=== PATIENT | female | born 1965 | race Caucasian/White ===

== ENCOUNTER 2018-04-20 09:14 | Emergency (ER) | payer MEDICAID ==
[2018-04-20] MEDS ORDERED: Fluorescein Sodium 1 mg Ophth Strip ONE (09:47)
--- NOTE | 2018-04-20 09:57 | ED Physician Chart ---
ED Chief Complaint/HPI - Patient Information Date Seen:: 04/20/18 Time Seen:: 09:40 Chief Complaint:: pain right eye History of Present Illness:: Patient developed pain, blurred vision and watery discharge from the right eye yesterday. No trauma. Patient developed rhinorrhea after the onset of the right eye symptoms. Patient had right ear pain 2 days ago. Vitals:: Vital Signs - 8 hr 04/20/18 09:21 Temp 97.9 F HR 88 RR 18 BP 130/79 O2 Sat % 97 Historian:: Patient Review:: Nurse's Note Reviewed ED Review of Systems - Review of Systems General/Constitutional: No fever, No chills, No weight loss, No weakness, No diaphoresis, No edema, No loss of appetite Skin: No skin lesions, No rash, No bruising Head: No headache, No light-headedness Eyes: Acuity change, Pain, No diplopia ENT: No earache, No nasal drainage, No sore throat, No tinnitus Neck: No neck pain, No swelling, No thyromegaly, No stiffness, No mass noted Cardio Vascular: No chest pain, No palpitations, No PND, No orthopnea, No edema Pulmonary: No SOB, No cough, No sputum, No wheezing GI: No nausea, No vomiting, No diarrhea, No pain, No melena, No hematochezia, No constipation, No hematemesis G/U: No dysuria, No frequency, No hematuria Musculoskeletal: No bone or joint pain, No back pain, No muscle pain Endocrine: No polyuria, No polydipsia Psychiatric: No prior psych history, No depression, No anxiety, No suicidal ideation Hematopoietic: No bruising, No lymphadenopathy Allergic/Immuno: No urticaria, No angioedema Neurological: No syncope, No focal symptoms, No weakness, No paresthesia, No headache, No seizure, No dizziness, No confusion, No vertigo ED Past Medical History - Past Medical History Past Medical History: No significant medical hx Family History: Other (mother had cardiac arrhythmia and hypertension; father of complications of pneumonia) Social History: Non Smoker, No Alcohol Surgical History: other (cataract surgery left eye) Medication: None Family Medical History - Family Member Father Age: 87 Ethnicity: Living Status: Hx Family Hypertension: Yes Other Medical History: from complications of PNA. Mother Ethnicity: Living Status: Still Living Hx Family Hypertension: Yes Other Medical History: Arrhythmia. ED Physical Exam - Physical Examination General/Constitutional: Awake, Well-developed, well-nourished, Alert, No distress Head: Atraumatic Eyes: Lids, conjuctiva normal, PERRL Other Eyes comments:: Right eye: Upper lid everted and lower lid retracted and no foreign body seen; fluorescein negative; fluorescein irrigated out with normal saline ENMT: External ears, nose nl, TM canals nl, Nasal exam nl, Lips, teeth, gums nl , Oropharynx nl, Tonsils nl Neck: No nuchal rigidity Respiratory: Nl effort/Exclusion, Clear to Auscultation, No Wheeze/Rhonchi/Rales Cardio Vascular: RRR, No murmur, gallop, rubs, NL S1 S2 GI: No tenderness/rebounding/guarding, No organomegaly : No CVA tenderness Extremities: No edema Neuro/Psych: No focal deficits ED Septic Shock - . Is Septic Shock (SBP<90, OR Lactate>4 mmol\L) present?: No - <6hrs of presentation: Vital Signs: Vital Signs - 8 hr 04/20/ 09:21 Temp 97.9 F HR 88 RR 18 BP 130/79 O2 Sat % 97 ED Reassessment (Disposition) - Reassessment Reassessment Condition:: Unchanged - Diagnosis Diagnosis:: Conjunctivitis right eye - Aftercare/Follow up Instructions Aftercare/Follow-Up Instructions:: Refer to Discharge Instructions Medication Prescribed:: sulamyd 10% ophthalmic to apply 2 drops right eye every two hours while awake. - Patient Disposition Discharge/Transfer:: Home Condition at Disposition:: Stable, Unchanged
== END 2018-04-20 10:07 | disposition home or self-care (01) ==
LOC: ER 09:14
DX: H10.9 Unspecified conjunctivitis (principal)
CPT/HCPCS: Z7502

== ENCOUNTER 2018-08-24 08:59 | Emergency (ER) | payer MEDICAID ==
--- NOTE | 2018-08-24 09:30 | ED Physician Chart ---
ED Chief Complaint/HPI - Patient Information Date Seen:: 08/24/18 Time Seen:: 09:15 Chief Complaint:: left groin pain History of Present Illness:: Patient's had left groin pain for last 1 week. Pain is slightly increased with ambulation but more exacerbated by making quick movements. Patient's had left low back pain for 1 month. No dysuria. Patient's had nausea but no vomiting or diarrhea. Her menstrual periods have been accompanied by more painful cramps than previously. She gets intermittent dyspareunia. Patient is 4 para 3 AB 1. Allergies:: Allergies Allergy/AdvReac Type Severity Reaction Status Date / Time No Known Allergies Allergy Verified 08/24/18 09:07 Vitals:: Vital Signs - 8 hr 08/24/18 09:03 Temp 97.5 F HR 80 RR 16 BP 120/79 O2 Sat % 96 Historian:: Patient Review:: Nurse's Note Reviewed ED Review of Systems - Review of Systems General/Constitutional: No fever, No chills, No weight loss, No weakness, No diaphoresis, No edema, No loss of appetite Skin: No skin lesions, No rash, No bruising Head: No headache, No light-headedness Eyes: No loss of vision, No pain, No diplopia ENT: No earache, No nasal drainage, No sore throat, No tinnitus Neck: No neck pain, No swelling, No thyromegaly, No stiffness, No mass noted Cardio Vascular: No chest pain, No palpitations, No PND, No orthopnea, No edema Pulmonary: No SOB, No cough, No sputum, No wheezing GI: Nausea, No vomiting, No diarrhea, No melena, No hematochezia, No constipation, No hematemesis, Other (left groin pain) G/U: No dysuria, No frequency, No hematuria 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, Abnormal vaginal bleeding Musculoskeletal: No bone or joint pain, No back pain, No muscle pain Endocrine: No polyuria, No polydipsia Psychiatric: No prior psych history, No depression, No anxiety, No suicidal ideation Hematopoietic: No bruising, No lymphadenopathy Allergic/Immuno: No urticaria, No angioedema Neurological: No syncope, No focal symptoms, No weakness, No paresthesia, No headache, No seizure, No dizziness, No confusion, No vertigo ED Past Medical History - Past Medical History Past Medical History: Cataract, Other (uterine fibroid) Family History: Heart disease, Diabetes Melitus, HTN Social History: Non Smoker, No Alcohol Surgical History: other (cataract surgery left eye) Medication: None Family Medical History - Family Member Father Ethnicity: Living Status: Hx Family Hypertension: Yes Mother Ethnicity: Living Status: Still Living Hx Family Hypertension: Yes ED Physical Exam - Physical Examination General/Constitutional: Awake, Well-developed, well-nourished, Alert, No distress, GCS 15, Non-toxic appearing, Ambulatory Head: Atraumatic Eyes: Lids, conjuctiva normal, PERRL, EOMI Skin: Nl inspection, No rash, No skin lesions, No ecchymosis, Well hydrated, No lymphadenopathy ENMT: External ears, nose nl, Nasal exam nl, Lips, teeth, gums nl Neck: Nontender, Full ROM w/o pain, No JVD, No nuchal rigidity, No bruit, No mass, No stridor Respiratory: Nl effort/Exclusion, Clear to Auscultation, No Wheeze/Rhonchi/Rales Cardio Vascular: RRR, No murmur, gallop, rubs, NL S1 S2 GI: No organomegaly, No hernia, Normal BS's, Nondistended, No mass/bruits, No McBurney tenderness Other GI comments:: Left groin tenderness : NL external genitalia, No discharge Other comments:: Bimanual pelvic exam: 1.5 out of 4 cervical motion and left adnexal tenderness; uterus not enlarged to palpation Extremities: No tenderness or effusion, Full ROM, normal strength in all extremities, No edema, Normal digits & nails Neuro/Psych: Alert/oriented, DTR's symmetric, Normal sensory exam, Normal motor strength, Judgement/insight normal, Mood normal, Normal gait, No focal deficits Misc: No paraspinal tenderness Other Misc comments:: Flexion abduction external rotation left hip without pain or limitation of range of motion. ED Labs/Radiology/EKG Results - Lab Results Results: Laboratory Results WBC 8.1 Th/cmm (4.8-10.8) 08/24/18 09:33 RBC 4.49 Mil/cmm (3.80-5.10) 08/24/18 09:33 Hgb 13.8 gm/dL (12-16) 08/24/18 09:33 Hct 41.4 % (41.0-60) 08/24/18 09:33 MCV 92.1 fl (81-100) 08/24/18 09:33 MCH 30.6 pg (27.0-31.0) 08/24/18 09:33 MCHC Differential 33.3 pg (28.0-36.0) 08/24/18 09:33 RDW 12.5 % (11.5-20.0) 08/24/18 09:33 Plt Count 220 Th/cmm (150-400) 08/24/18 09:33 MPV 8.0 fl 08/24/18 09:33 Neutrophils % 66.2 % (40.0-80.0) 08/24/18 09:33 Lymphocytes % 24.0 % (20.0-50.0) 08/24/18 09:33 Monocytes % 7.3 % (2.0-10.0) 08/24/18 09:33 Eosinophils % 2.2 % (0.0-5.0) 08/24/18 09:33 Basophils % 0.3 % (0.0-2.0) 08/24/18 09:33 Urine Source CLEAN C 08/24/18 09:10 Urine Color YELLOW 08/24/18 09:10 Urine Clarity CLEAR (CLEAR) 08/24/18 09:10 Urine pH 7.0 (4.6 - 8.0) 08/24/18 09:10 Ur Specific [place] 1.010 (1.005-1.030) 08/24/18 09:10 Urine Protein NEGATIVE mg/dL (NEGATIVE) 08/24/18 09:10 Urine Glucose (UA) NEGATIVE mg/dL (NEGATIVE) 08/24/18 09:10 Urine Ketones NEGATIVE mg/dL (NEGATIVE) 08/24/18 09:10 Urine Blood NEGATIVE (NEGATIVE) 08/24/18 09:10 Urine Nitrate NEGATIVE (NEGATIVE) 08/24/18 09:10 Urine Bilirubin NEGATIVE (NEGATIVE) 08/24/18 09:10 Urine Urobilinogen 0.2 E.U./dL (0.2 - 1.0) 08/24/18 09:10 Ur Leukocyte Esterase NEGATIVE (NEGATIVE) 08/24/18 09:10 Urine RBC NONE SEEN /hpf (0-5) 08/24/18 09:10 Urine WBC 0-2 /hpf (0-5) 08/24/18 09:10 Ur Epithelial Cells FEW /lpf (FEW) 08/24/18 09:10 Urine Bacteria FEW /hpf (NONE SEEN) 08/24/18 09:10 Urine Test NEGATIVE 08/24/18 09:10 ED Assessment - Assessment General Assessment: Patient's ultrasound shows a right sided intramural fibroid. CBC is normal. Urinalysis is normal. Patient was reexamined at 1135. She had mild left lower quadrant tenderness without guarding. Again flexion abduction external rotation of the left hip was performed without discomfort or resistance. X-ray left hip showed small deposition of calcium adjacent to the greater trochanter but there is no tenderness to the area. Etiology of the patient's left groin pain remains uncertain. Patient to be given Toradol 30 mg intramuscularly before discharge. ED Septic Shock - . Is Septic Shock (SBP<90, OR Lactate>4 mmol\L) present?: No - <6hrs of presentation: Vital Signs: Vital Signs - 8 hr 08/24/18 09:03 Temp 97.5 F HR 80 RR 16 BP 120/79 O2 Sat % 96 ED Reassessment (Disposition) - Reassessment Reassessment Condition:: Unchanged - Diagnosis Diagnosis:: Left groin pain etiology to be determined; uterine fibroid; soft tissue calcium deposit adjacent to the greater trochanter left hip - Patient Disposition Discharge/Transfer:: Home Condition at Disposition:: Stable, Unchanged
[2018-08-24 09:44] LABS: URINE SOURCE CLEAN C
[2018-08-24 09:48] LABS: URINE BILIRUBIN NEGATIVE (NEGATIVE); URINE BLOOD NEGATIVE (NEGATIVE); URINE GLUCOSE (UA) NEGATIVE (NEGATIVE); URINE KETONE NEGATIVE (NEGATIVE); URINE LEUKOCYTE ESTERASE NEGATIVE (NEGATIVE); URINE NITRATE NEGATIVE (NEGATIVE); URINE PROTEIN NEGATIVE (NEGATIVE); URINE UROBILINOGEN 0.2 E.U./dL (0.2 - 1.0)
[2018-08-24 09:54] LABS: URINE CLARITY CLEAR (CLEAR); URINE COLOR YELLOW
[2018-08-24 09:59] LABS: % BASOPHILS 0.3 % (0.0-2.0); % EOSINOPHILS 2.2 % (0.0-5.0); % MONOCYTES 7.3 % (2.0-10.0); % NEUTROPHILS 66.2 % (40.0-80.0); EOSINOPHILE ABSOLUTE 0.2 Th/cmm (0.1-0.4); HEMATOCRIT 41.4 % (41.0-60); HEMOGLOBIN 13.8 gm/dL (12-16); LYMPHOCYTE ABSOLUTE 1.9 Th/cmm (1.5-3.0); MEAN CELL VOLUME 92.1 fl (81-100); MEAN CORPUSCULAR HEMOGLOBIN 30.6 pg (27.0-31.0); MEAN CORPUSCULAR HGB CONC 33.3 pg (28.0-36.0); MONOCYTE ABSOLUTE 0.6 Th/cmm (0.3-1.0); NEUTROPHILE ABSOLUTE 5.4 Th/cmm (1.8-8.0); PLATELET COUNT 220 Th/cmm (150-400); RED BLOOD COUNT 4.49 Mil/cmm (3.80-5.10); RED CELL DISTRIBUTION WIDTH 12.5 % (11.5-20.0); WHITE BLOOD COUNT 8.1 Th/cmm (4.8-10.8)
[2018-08-24 10:01] LABS: URINE MICROSCOPIC INDICATED? YES
[2018-08-24 10:02] LABS: URINE RBC NONE SEEN /hpf (0-5)
[2018-08-24 10:03] LABS: URINE BACTERIA FEW /hpf (NONE SEEN); URINE EPITHELIAL CELLS FEW /lpf (FEW); URINE WBC 0-2 /hpf (0-5)
--- NOTE | 2018-08-24 10:39 | Diagnostic Imaging Report ---
Pelvis and left hip 3 views Indication: Left groin pain Comparison: none Findings: There is mild degenerative change left hip joint. Small calcification is seen adjacent to left greater trochanter. Additional small calcification enthesophytes are seen along the left ischial bone. There is subtle lucency of the left inferior pubic bone which appears to be due to projection. Otherwise no fracture identified. No dislocation. Mild degenerative changes of lower lumbar spine and SI joints are noted. Impression: Subtle lucency of the left inferior pubic bone which appears to be due to projection. Please correlate clinically. Otherwise no evidence of acute fracture. Mild degenerative changes Small calcifications in the region of the greater trochanteric region which may be left greater trochanteric tendinitis. Small calcifications of the left inferior ischial regions are also noted. In the setting of trauma, if clinical symptoms persist and there is continued concern for an occult fracture, follow up exams in 5-7 days is suggested.
--- NOTE | 2018-08-24 12:36 | Diagnostic Imaging Report ---
Ultrasound pelvis HISTORY: Left groin pain. LMP 07/25/2018. Beta hCG is negative. COMPARISON: Pelvis and left hip x-rays the same day Technique: Longitudinal and transverse sonographic sector images of the pelvis were obtained transabdominally and transvaginally. FINDINGS: The uterus measures 9.8 x 5.4 x 6.6 cm demonstrates a heterogeneous echotexture with what appears to be intraluminal fibroid measuring 3.0 x 2.8 x 2.3 cm along the right fundal portion. The endometrial complex measures 7 mm. The right ovary measures 2.6 x 2.4 cm. 1.7 cm right ovarian follicular cyst is noted. Vascular analysis to the right ovary was not able to be performed due to body habitus. The left ovary measures 2.0 x 2.4 cm. Vascular flow to left ovary is noted. No free fluid in the pelvis. IMPRESSION: 1.7 cm right ovarian follicular cystic changes. Consider follow-up ultrasound in 4-6 weeks to ensure resolution. Vascular analysis to the right ovary was not able to be obtained due to patient's body habitus and posterior positioning of the right ovary. The significance of this finding should be correlated clinically. Grossly unremarkable left ovary Heterogeneous uterus with probable fibroid along the fundal portion measuring 3.0 x 2.8 x 2.3 cm along the fundal portion. No free fluid identified.
== END 2018-08-24 11:50 | disposition home or self-care (01) ==
LOC: ER 08:59
DX: D25.9 Leiomyoma of uterus, unspecified (principal); M71.452 Calcium deposit in bursa, left hip; R10.32 Left lower quadrant pain
CPT/HCPCS: 99284; 96372; 73502; 76856; 36415; 85025; 81001; 81025; J1885; 73501; Z7502